=== PATIENT | female | born 1985 | race Caucasian/White ===

== ENCOUNTER 2020-04-20 01:50 | Emergency (ER) | payer SELFPAY ==
[2020-04-20 02:08] VITALS: BP 116/79; PULSE 96; RESP 18; TEMP 36.7; O2SAT 98; BMI 25.9
--- NOTE | 2020-04-20 02:39 | W.ED.ANIMALB ---
HPI - Animal Bite General: Chief Complaint: Animal Bite Stated Complaint: DOG BITE: R Leg/Arm Time Seen by Provider: 04/20/20 02:34 History of Present Illness: HPI narrative: Patient is a 34-year-old female comes in the ED with dog bite. Patient cleaned bite wounds with water and then hydrogen peroxide before coming to the ED. Patient says that her last tetanus was about 8 years ago. She agreed to get an updated tetanus shot today. complaint: animal bite Onset (ago): hour(s) (occurred a couple hours before arrival.) Animal: dog Description of animal: household pet, immunizations UTD and appeared well Mechanism: bite Location - Extremities: Right: forearm (puncture) and lower leg Pain description: sharp Context: other (Patient was freeing her pet dog from an animal trap her dog was caught in.) Associated symptoms: Deny chills, fever(s) or headache(s) Treatments prior to arrival: wound dressing(s) Review of Systems Const: Denies: fever(s), chills or fatigue Eyes: Denies: change in vision or eye discomfort ENMT: Denies: throat pain, odynophagia, nasal discharge or nasal congestion Card: Denies: chest pain, palpitations, edema, swelling of feet/ankles, dyspnea on exertion or orthopnea Resp: Denies: dyspnea, productive cough or non-productive cough GI: Denies: abdominal pain, nausea, vomiting, diarrhea, constipation or hematochezia : Denies: flank pain, dysuria or hematuria Musc: Denies: neck pain, back pain or extremity swelling Skin/Breast: Reports: new lesions (3 lacerations on right lower leg and 1 laceration on right forearm); Denies: rash Neuro: Denies: headache(s), numbness in extremities or weakness in extremities PFS ED PFSH: Social History Smoking and tobacco status: current every day smoker Physical Exam Const: COMMON NORMALS: no acute distress, patient oriented x3 and alert GENERAL APPEARANCE: cooperative and comfortable HENMT: COMMON NORMALS: normocephalic HEAD & SCALP: normocephalic MOUTH: Normal oral and palatal mucosa present THROAT: posterior oropharynx normal and uvula midline Neck/C-Spine: COMMON NORMALS: supple GENERAL: Yes normal visual inspection Resp: COMMON NORMALS: normal respiratory effort, No retractions, No use of accessory muscles and clear to auscultation bilaterally AUSCULTATION: clear to auscultation bilaterally Cardio: COMMON NORMALS: regular rate, regular rhythm, S1 normal heart sound present, S2 normal heart sound present, No gallops present (Cardio), No clicks present (Cardio), No murmurs present (Cardio) and Peripheral pulses 2+ throughout RATE: regular rate RHYTHM: regular rhythm HEART SOUNDS: S1 normal heart sound present and S2 normal heart sound present PERIPHERAL PULSES: Peripheral pulses 2+ throughout GI: COMMON NORMALS: Normal to inspection, nondistended, normoactive bowel sounds present, Soft to palpation, non-tender and no masses PALPATION: Yes Soft to palpation : COMMON NORMALS: Yes no CVA tenderness BLADDER/KIDNEY EXAM: Yes no CVA tenderness Back/Pelvis: COMMON NORMALS: no CVA tenderness Extremity: NARRATIVE EXTREMITY EXAM: Patient has 3 lacerations on right lower leg and one laceration on right forearm. Details are on the skin section of physical exam. GENERAL: Yes normal exam except as noted Neuro: COMMON NORMALS: patient oriented x3 and moves all extremities SENSORIUM/ORIENTATION: Yes alert Skin: GENERAL SKIN EXAM: dry skin and ecchymosis (Around lacerations on right lower leg and laceration on right forearm.) TRAUMA: laceration (Right leg has two 0.5cm lacs and one 3cm lac. Anterior aspect of right forearm had 1 cm laceration) linear, puncture (three smaller lacs are puncture wounds as well.), actively bleeding (minimal), superficial, involves subcutaneous tissue, motor nerve function intact and sensation intact; not contaminated Procedures Laceration Laceration 1: Site: lower extremity Side (If applicable): right Size (cm): 3 Description: linear and clean Depth: simple, single layer Local Anesthetic: lidocaine 1% and with epi Amount of anesthesia used (mL): 10 Pre-repair: wound explored and irrigated extensively (With normal saline and cleaned with CHG) Skin layer closed with: nylon Size (cm): 4-0 Number of sutures: 3 Technique: simple, interrupted Laceration 2: Site: lower extremity Side (If applicable): right Size (cm): 0.5 Description: linear and clean Depth: simple, single layer Local Anesthetic: lidocaine 1% and with epi Amount of anesthesia used (mL): 2.5 Pre-repair: irrigated extensively (With normal saline and cleaned with CHG) Skin layer closed with: nylon Size (cm): 4-0 Number of sutures: 1 Technique: simple, interrupted Laceration 3: Site: lower extremity Side (If applicable): right Size (cm): 0.5 Description: clean Depth: simple, single layer Local Anesthetic: lidocaine 1% and with epi Amount of anesthesia used (mL): 2.5 Pre-repair: irrigated extensively (With normal saline and cleaned with CHG.) Skin layer closed with: nylon Size (cm): 4-0 Number of sutures: 1 Technique: simple, interrupted Laceration 4: Site: upper extremity Side (If applicable): right Size (cm): 1 Description: linear and clean Depth: simple, single layer Local Anesthetic: lidocaine 1% and with epi Amount of anesthesia used (mL): 5 Pre-repair: wound explored and irrigated extensively (With normal saline and cleaned with CHG swab.) Skin layer closed with: nylon Size (cm): 4-0 Number of sutures: 1 Technique: simple, interrupted Course Vital Signs: Vital signs: Vital Signs Temperature 98.1 F 04/20/20 02:08 Pulse Rate 89 04/20/20 04:02 Respiratory Rate 18 04/20/20 04:02 Blood Pressure 108/74 04/20/20 04:02 Pulse Oximetry 100 04/20/20 04:02 Discharge Plan Discharge Patient Disposition: Home, Self-Care Clinical Impression: Multiple lacerations Dog bite Qualifiers: Encounter type: initial encounter Qualified Code(s): W54.0XXA - Bitten by dog, initial encounter Condition: Stable Prescriptions: New Augmentin 500-125 mg tablet 1 tab PO BID 5 Days Qty: 10 RF: 0 Discharge Orders: Discharge Order (Routine); Ordered 04/20/20 Ordered By: Solomon Barry Discharge Diet: Regular Discharge Activity: Resume usual activity Patient Instructions: Animal Bite (ED), Suture Care (ED), Laceration (ED) Activity Restrictions/Additional Instructions: Keep sutures clean and dry for the next 48 hours. After 48 hours re-bandage and clean daily. Take full course of antibiotics as prescribed. Sutures can be removed in 7-10 days at either the ED, primary care doctor or urgent care. Take Tylenol or ibuprofen for pain or fevers. Watch for signs of infection such as increasing redness, tenderness, warmth or puslike drainage. If you see with signs of infection return to ED, primary care office or urgent care for reevaluation. You were given a dose of tetanus here in the ED today. Your next tetanus dose in 8 to 10 years. Discharge Date/Time: 04/20/20 04:16 Coding Level of Care Code ED [facility] Director for Katja Barber Exam Comprehensive
[2020-04-20] MEDS: tetanus-dipt-pertussis 0.5 mL SDV IM (03:05)
[2020-04-20 03:17] VITALS: BP 110/77; PULSE 91; RESP 19; O2SAT 100
--- NOTE | 2020-04-20 03:21 | PC.NURSE ---
Wounds cleansed with NS and 4x4's
[2020-04-20] MEDS: amoxicillin-clav 500-125 mg Tablet 1 TAB PO (04:01)
[2020-04-20 04:02] VITALS: BP 108/74; PULSE 89; RESP 18; O2SAT 100
--- NOTE | 2020-04-20 04:14 | PC.NURSE ---
Telfa and coban to wounds
== END 2020-04-20 04:16 | disposition home or self-care (01) ==
PROVIDERS: Emergency Provider Physician Assistant
DX: S81.851A Open bite, right lower leg, initial encounter (principal); S51.851A Open bite of right forearm, initial encounter; W54.0XXA Bitten by dog, initial encounter; F17.210 Nicotine dependence, cigarettes, uncomplicated; Z23 Encounter for immunization
CPT/HCPCS: 12002; 12345; 90471; 90715; 99281; 99283; J2001

== ENCOUNTER 2020-08-19 21:19 | Emergency (ER) | payer SELFPAY ==
[2020-08-19 21:47] VITALS: BP 114/82; PULSE 100; RESP 14; TEMP 36.6; O2SAT 97; BMI 25.4
--- NOTE | 2020-08-19 22:47 | ED_ITS ---
HPI - Headache General: Chief Complaint: Headache Stated Complaint: fenton Time Seen by Provider: 08/19/20 22:41 History of Present Illness: HPI Narrative: Patient history of migraines. Was given Fioricet for headaches which she says helped in the past. But has not helped today. elicited complaint: migraine Onset (ago): hour(s) Onset description: gradually Location: frontal Severity: severe Quality & Timing: throbbing Exacerbating factors: movement of head/neck, light and noise Relieving factors: nothing and dark room Context: occurred at rest Associated symptoms: Reports nausea; Deny chest pain, fever(s) or rash Treatments prior to arrival: other (Fioricet) Review of Systems Const: Denies: fever(s), chills or body aches Eyes: Denies: change in vision or blurry vision ENMT: Denies: throat pain or nasal congestion Card: Denies: chest pain or dyspnea on exertion Resp: Denies: dyspnea, productive cough or non-productive cough GI: Reports: nausea Musc: Denies: extremity pain Skin/Breast: Denies: rash Neuro: Reports: headache(s) Psych: Denies: anxiety or depression Leo/Lymph: Denies: easy bruising PFSH ED PFSH: Social History Smoking and tobacco status: current every day smoker Physical Exam Const: COMMON NORMALS: no acute distress, average body habitus and patient oriented x3 HENMT: COMMON NORMALS: normocephalic HEAD & SCALP: normal to inspection and normocephalic FACE & SINUS: normal facial exam Eye: COMMON NORMALS: conjunctivae normal GENERAL EYE: appearance normal, both eyes and all related structures CONJUNCTIVA: Yes conjunctivae normal Neck/C-Spine: COMMON NORMALS: no JVD Chest: COMMONS NORMALS: normal inspection of the chest Resp: COMMON NORMALS: normal respiratory effort and clear to auscultation bilaterally AUSCULTATION: clear to auscultation bilaterally Cardio: COMMON NORMALS: no JVD, regular rate and regular rhythm RATE: regular rate RHYTHM: regular rhythm GI: COMMON NORMALS: Normal to inspection, nondistended, normoactive bowel soun ds present Extremity: COMMON NORMALS: full ROM Neuro: COMMON NORMALS: patient oriented x3 Course Vital Signs: Vital signs: Vital Signs Temperature 97.9 F 10/20/20 21:47 Pulse Rate 64 08/19/20 23:48 Respiratory Rate 18 08/19/20 23:48 Blood Pressure 113/67 08/19/20 23:48 Pulse Oximetry 99 08/19/20 23:48 MDM - Headache MDM Narrative: Medical decision making narrative: Complete relief with the Imitrex injection will start patient on having as needed I am attracts use half tab daily as needed for migraine attack take it beginning migraine Discharge Plan Discharge Patient Disposition: Home Clinical Impression: Migraine Qualifiers: Migraine type: without aura Status migrainosus presence: without status migrainosus Intractability: intractable Qualified Code(s): G43.019 - Migraine without aura, intractable, without status migrainosus Condition: Stable Prescriptions: New Imitrex 100 mg tablet 100 mg PO ONCE Qty: 9 RF: 0 promethazine 12.5 mg tablet 12.5 mg PO Q6H PRN (Reason: nausea and vomiting) Qty: 14 RF: 0 Discharge Orders: Discharge Order (Routine); Ordered 08/19/20 Ordered By: Larry Stanley Discharge Diet: Usual diet Discharge Activity: Resume usual activity Patient Instructions: Headache - Migraine (Adult) Activity Restrictions/Additional Instructions: Follow-up with medical provider as directed. Take medications as prescribed. Return to the ER or your medical provider if condition worsens. Please read and understand discharge instructions. If any questions ask please. Discharge Date/Time: 08/19/20 23:50 Coding Level of Care Code ED [facility] for [facility]ja Fwd Exam Comprehensive
[2020-08-19] MEDS: promethazine 25 mg/mL SDV 1 mL IM (23:03)
[2020-08-19] MEDS: SUMAtriptan 6 mg/0.5 mL SDV SUBCUT (23:03)
[2020-08-19 23:48] VITALS: BP 113/67; PULSE 64; RESP 18; O2SAT 99
== END 2020-08-19 23:50 | disposition home or self-care (01) ==
PROVIDERS: Emergency Provider Nurse Practitioner Family
DX: G43.019 Migraine without aura, intractable, without status migrainosus (principal); F17.210 Nicotine dependence, cigarettes, uncomplicated
CPT/HCPCS: 12345; 96372; 99282; 99283; J2550; J3030

== ENCOUNTER 2025-10-21 17:57 | Emergency (ER) | payer SELFPAY ==
[2025-10-21 17:58] VITALS: BP 135/91; PULSE 85; RESP 16; TEMP 36.6; O2SAT 100
--- OUTSIDE RECORDS SUMMARY | 2025-10-21 18:01 | XMS_ITS | Clinical Summary ---
Author Organization [facility] Address [address] [place]: Epic Prelude ADT RAH[place] SILVER [address] Care Team Providers Care Social Sciences Professor Name Role Phone Unavailable Primary Care Provider Unavailabl e Medications montelukast (Singulair) 10 mg tablet Take 1 Tablet by mouth 1 time daily as needed. Active Social History Tobacco Use Types Packs/Day Years Used Date Smoking Tobacco: Every Day Cigarettes Alcohol Use Standard Drinks/Week Comments Yes 0 (1 standard drink = 0.6 oz pur e alcohol) Comments Unknown Sex and Gender Information Value Date Recorded Sex Assigned at Not on file Legal Sex Female 11:35 PM CDT Gender Identity Not on file Sexual Orientation Not on file Plan of Treatment Health Maintenance Due Date Last Done Comments DTAP/TDAP/TD VACCINES (1 - Tdap) 2004 HEPATITIS B VACCINES (1 of 3 - 19+ 3-dose series) 12/2003 HPV/Cotest (21-29) 2006 CERVICAL CANCER SCREENING 2015 HPV/Cotest (30-65) 2015 PAP SMEAR 2015 BREAST CANCER SCREENING 2025 INFLUENZA VACCINE (#1) 2025 HPV VACCINES (No Doses Required) Completed
--- OUTSIDE RECORDS SUMMARY | 2025-10-21 18:01 | XMS_ITS | Clinical Summary ---
Author Organization [facility] Address [address] [place] [address] Phone Care Team Providers Care Resident Services Director Name Role Phone Unavailable Primary Care Provider Unavailabl e Allergies No known active allergies Medications MONTELUKAST SODIUM (SINGULAIR ORAL) Take 1 Tab by mouth 1 time daily as needed. Active naproxen (NAPROSYN) 375 mg tablet Take 1 Tab by mouth 2 times daily with meals. 14 Tab None 04/12/2014 Active Social History Tobacco Use Types Packs/Day Years Used Date Smoking Tobacco: Every Day Cigarettes Alcohol Use Standard Drinks/Week Comments Yes 0 (1 standard drink = 0.6 oz pur e alcohol) seldom Comments No Sex and Gender Information Value Date Recorded Sex Assigned at Not on file Legal Sex Female 12:05 PM CDT Gender Identity Not on file Sexual Orientation Not on file Last Filed Vital Signs Vital Sign Reading Time Taken Comments Blood Pressure 106/60 04/12/2014 2:42 PM CDT Pulse 78 04/12/2014 12:16 PM CDT Temperature 36.9 C (98.4 F) 04/12/2014 2:42 PM CDT Respiratory Rate 16 04/12/2014 2:42 PM CDT Oxygen Saturation 98% 04/12/2014 2:42 PM CDT Inhaled Oxygen Concentration - - Weight 66 kg (145 lb 9.6 oz) 04/12/2014 12:16 PM CDT Height 152.4 cm (5') 04/12/2014 12:16 PM CDT Body Mass Index 28.44 04/12/2014 12:16 PM CDT Plan of Treatment Health Maintenance Due Date Last Done Comments DTAP/TDAP/TD VACCINES (1 - Tdap) 2004 HEPATITIS B VACCINES (1 of 3 - 19+ 3-dose series) 12/2003 HPV/Cotest (21-29) 2006 CERVICAL CANCER SCREENING 2015 HPV/Cotest (30-65) 2015 PAP SMEAR 2015 BREAST CANCER SCREENING 2025 INFLUENZA VACCINE (#1) 2025 HPV VACCINES (No Doses Required) Completed Insurance MEDICAID [place]
--- OUTSIDE RECORDS SUMMARY | 2025-10-21 18:02 | XMS_ITS | Patient Health Record ---
Author Organization [facility] Address [address] [place] [address] Care Team Providers Care Java Groovy Developer Name Role Phone Rand, [facility] Primary Care Provider [phone] [facility] Unavailable Unavailable Allergies No Known Allergies Reason For Referral No Information Medications Medication SIG (Take, Route, Frequency, Duration) Notes Start Date End Date Status SUMAtriptan Succinate 100 MG Tablet 1 tab Oral Once a day prn migraine; may repeat q 2 hours if needed; Duration: 30 days Active Ondansetron 4 MG Tablet Disintegrating 1 tab Orally q 4 hours prn nausea; Duration: 30 days Not-Taking Diclofenac Sodium 75 MG Tablet Delayed Release 1 tab Orally Twice a day pc prn inflammatory pain; Duration: 30 04/12/2025 11/07/2025 Active Immunizations Vaccine Route Administration Date Status Comme nts Flucelvax Trivalent, Syringe 0.5 mL, PF Unknown 025 Refused Social History Tobacco Use: Social History Observation Description Date Details (start date - stop date) Former Smoker NA - NA Social History Depression Screening Social Info Question Answer Notes depression screening findings Findings Negative (0 -4) PHQ-9 Little interest or p nunu in doing things Not at all Feeling down, depressed, or hopeless Not at all Trouble falling or staying asleep, or sleeping t oo much Not at all Feeling tired or having little energy Not at all Poor appetite or overeating Not at all Feeling bad about yourself, or that you are a failure, or have let yourself or your family down Not at all Trouble concentrating on thi ngs, such as reading the newspaper or watching television Not at all Moving or speaking so slowly that other people could have noticed. Or the opposite ? being so fidgety or restless that you have been moving around a lot more than usual Not at all Thoughts that you would be b mariella off , or of hurting yourself in some way Not at all Total Score 0 Drugs/Alcohol: Social Info Question Answer Notes Alcohol Screen (Audit-C) Did you have a drink containing alcohol in the past year? Yes How often did you have a drink containing alcohol in the past year? Monthly or less (1 point) How many drinks did you have on a typical day when you were drinking in the past year? 1 or 2 drinks (0 point) How often did you have 6 or more drinks on one occasion in the past year? Never (0 point) Points 1 Interpretation Negative Drugs Have you used drugs other than those for medical reasons in the past 12 months? No Tobacco Use: Social Info Question Answer Notes Tobacco Control (Standard) Tobacco use: Former smoker How long has it been since you last smoked? 1-5 years Additional Details Category Social Info Options Details Drugs/Alcohol: Do you smoke marijuana? De nies Do you drink alcohol? 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) Active confirmed Problem Obesity (089271549) Obesity (BMI 30-39.9) (E66.9) Active confirmed Problem Migraine with aura (4432403) Migraine with aura and without status migrainosus, not intractable (G43.109) Active confirmed Problem Sciatica (55067076) Sciatica (M54.30) Active confirmed Problem Body mass index 30.00 to 34.99 (465794151837015 ) Body mass index [BMI] 32.0-32.9, adult (Z68.32) Active confirmed Problem Body mass index 30+ - obesity (526312294) Body mass index [BMI] 30.0-30.9, adult (Z68.30) Active confirmed Vital Signs Heart Rate 85 /min 07/12/2025 Temperature 97.5 degrees Fahrenheit 07/12/2025 Respiratory Rate 20 /min 07/12/2025 Blood pressure diastolic 64 mm Hg 07/12/2025 Oximetry 99 % 07/12/2025 Height-cm 152.4 cm 07/12/2025 Weight-kg 64.41 kg 07/12/2025 Height 60 in 07/12/2025 Blood pressure systolic 94 mm Hg 07/12/2025 Weight 142 lbs 07/12/2025 BMI 27.73 kg/m2 07/12/2025 Encounters Encounter Location Date Provider Diagnosis [facility] [address] [address] 07/12/2025 [facility] Overweight (BMI 25.0-29.9) E66.3 and Migraine with aura and without status migrainosus, not intractable G43.109 [facility] [address] [address] 06/14/2025 [facility] Migraine with aura a nd without status migrainosus, not intractable G43.109 and Overweight (BMI 25.0-29.9) E66.3 [facility] [address] [address] 05/10/2025 [facility] Overweight (BMI 25.0-29.9) E66.3 and Migraine with aura and without status migrainosus, not intractable G43.109 [facility] [address] [address] 04/12/2025 [facility] Encounter for immunization Z23 ; Lumbar pain M54.50 ; Immunization not carried out because of patient refusal Z28.21 ; Overweight (BMI 25.0-29.9) E66.3 ; Sciatica M54.30 ; Muscle spasm M62.838 and Absence of both cervix and uterus, acquired Z90.710 [facility] [address] [address] 02/07/2025 [facility] Depression screen Z13.31 and Migraine with aura and without status migrainosus, not intractable G43.109 [facility] [address] [address] 06/26/2025 [facility] Assessments Encounter Date Diagnosis (ICD Code) Assessment Notes Treatment Notes Treatment Clinical Notes Section Notes 02/07/2025 Migraine with aura and without status migrainosus, not intractable (ICD-10 - G43.109) sumatriptan 02/07/2025 Depression screen (ICD-10 - Z13.31) 05/10/2025 Migraine with aura and without status migrainosus, not intractable (ICD-10 - G43.109) sumatriptan 05/10/2025 Overweight (BMI 25.0-29.9) (ICD-10 - E66.3) Discussed with the diet, increase water intake, increase activity, decrease calorie intake, take medication as directed; phentermine e script to patient pharmacy. Patient to lose minimum of 4 pounds and return to clinic 1 month and prn. Pts questions asked and answered. Discharged to home. 06/14/2025 Migraine with aura and without status migrainosus, not intractable (ICD-10 - G43.109) continue meds 06/14/2025 Overweight (BMI 25.0-29.9) (ICD-10 - E66.3) Discussed with the diet, increase water intake, increase activity, decrease calorie intake, take medication as directed; phentermine e script to patient pharmacy. Patient to lose minimum of 4 pounds and return to clinic 1 month and prn. Pts questions asked and answered. Discharged to home. 07/12/2025 Migraine with aura and without status migrainosus, not intractable (ICD-10 - G43.109) sumatriptan 07/12/2025 Overweight (BMI 25.0-29.9) (ICD-10 - E66.3) Discussed with the diet, increase water intake, increase activity, decrease calorie intake, take medication as directed; phentermine e script to patient pharmacy. Patient to lose minimum of 4 pounds and return to clinic 1 month and prn. Pts questions asked and answered. Discharged to home. 04/12/2025 Encounter for immunization (ICD-10 - Z23) 04/12/2025 Lumbar pain (ICD-10 - M54.50) diclofenac tramadol 04/12/2025 Immunization not carried out because of patient refusal (ICD-10 - Z28.21) 04/12/2025 Overweight (BMI 25.0-29.9) (ICD-10 - E66.3) Discussed with the diet, increase water intake, increase activity, decrease calorie intake, take medication as directed; phentermine e script to patient pharmacy. Patient to lose minimum of 4 pounds and return to clinic 1 month and prn. Pts questions asked and answered. Discharged to home. 04/12/2025 Sciatica (ICD-10 - M54.30) depomedrol/deca dron im 04/12/2025 Muscle spasm (ICD-10 - M62.838) flexeril 04/12/2025 Absence of both cervix and uterus, acquired (ICD-10 - Z90.710) 02/07/2025 Other Questions asked and answered; discharged to home. 04/12/2025 Other Questions asked and answered; discharged to home. 05/10/2025 Other Questions asked and answered; discharged to home. 06/14/2025 Other Questions asked and answered; discharged to home. 07/12/2025 Other Questions asked and answered; discharged to home. Plan Of Treatment No Information Medications Administered Medication Instructions Date of Administration Dosage Notes DEPO-Medrol 04/12/2025 40 mg [facility] [phone] 3-01 pt tolerated well/instructed to wait 20 min dexAMETHasone 04/12/2025 4 mg [facility] [address]-4 423-00 pt tolerated well/instructed to wait 20 min Medical (General) History Medical History History ICD Code migraines Surgical History Surgery Date(Month/Year) hysterectomy, total with bilateral salpi guerra-oophorectomy (BSO) dental surgery 2021 Hospitalization History Reason Date(Month/Year) childbirth x2
[2025-10-21 18:35] VITALS: BP 135/97; PULSE 83; RESP 18; O2SAT 100
--- NOTE | 2025-10-21 19:12 | ED_ITS ---
HPI - Headache General: Chief Complaint: Headache Stated Complaint: YANES, lump on head Time Seen by Provider: 10/21/25 18:16 Source: patient Mode of arrival: ambulatory Limitations: no limitations History of Present Illness: Patient is a 40-year-old female with past medical history of migraines who presents to the emergency department complaining of a headache for the past 4 days. States that this current migraine was prompted by a lump on her head that has been present for years but recently has started to grow in size, become red, and very tender. States that normally she takes sumatriptan for abortive therapy but this has not been helpful. Denies any fevers or chills, no nausea or vomiting. No neurological symptoms, no visual changes. She does note that primarily her migraine is the most bothersome symptoms, as she can feel a lot of pressure behind her right eye. Her vitals are stable at this time, nontoxic- appearing, no focal neurological deficit. MD elicited complaint: headache and other (Lump on head) Onset (ago): day(s) (4) Associated symptoms: Deny chest pain, fever(s), lightheadedness, nausea, rash or vomiting Related Data Previous Rx's ?Medication ?Instructions ?Recorded promethazine 12.5 mg tablet 12.5 mg PO Q6H PRN nausea and 08/19/20 vomiting #14 tabs sumatriptan succinate 100 mg 100 mg PO ONCE #9 tabs tablet (Imitrex) doxycycline hyclate 100 mg tablet 100 mg PO BID 7 days #14 tabs 10/21/25 hydrocodone 5 mg-acetaminophen 325 1 tab PO Q8H PRN pa in #14 tabs 10/21/25 mg tablet ondansetron 4 mg disintegrating 4 mg PO TID PRN nausea and 10/21/25 tablet vomiting #30 tabs Allergies Allergy/AdvReac Type Severity Reaction Status Date / Time No Known Allergies Allergy Verified 04/20/20 02:16 Review of Systems General: Reports: 10 or more systems reviewed and unremarkable except in HPI and below Const: Denies: fever(s), chills or fatigue Eyes: Denies: change in vision ENMT: Denies: throat pain, ear or mastoid pain or nasal discharge Card: Denies: chest pain, palpitations, swelling of feet/ankles or lightheadedness Resp: Denies: dyspnea, productive cough or wheezing GI: Denies: abdominal pain, nausea, vomiting, diarrhea or constipation : Denies: flank pain, difficulty voiding, dysuria or urinary frequency Musc: Denies: neck pain, back pain or joint pain Skin/Breast: Reports: erythema, skin pain, skin tenderness, skin swelling and changing lesions; Denies: rash Neuro: Reports: headache(s); Denies: numbness in extremities, weakness in extremities, dizziness, seizure- like activity or involuntary movements PFSH ED PFSH: Social History Smoking and tobacco/nicotine status: current every day tobacco/nicotine user Physical Exam Const: COMMON NORMALS: no acute distress, average body habitus, patient oriented x3, no limitations, healthy appearing, alert and well nourished HENMT: OTHER: There is a cystic lesion to patient's scalp, very tender to palpation, hard to the touch with some fluctuance noted. There is also overlying erythema that is mild but present and appears to be expanding circumferentially Neck/C-Spine: COMMON NORMALS: full ROM, no lymphadenopathy, supple and no meningeal signs Resp: COMMON NORMALS: normal respiratory effort, No use of accessory muscles and clear to auscultation bilaterally AUSCULTATION: clear to auscultation bilaterally Cardio: COMMON NORMALS: regular rate and regular rhythm RATE: regular rate RHYTHM: regular rhythm Extremity: COMMON NORMALS: full ROM and capillary refill normal Neuro: COMMON NORMALS: patient oriented x3, CN's II-XII intact bilaterally, moves all extremities, no focal motor deficits and no sensory deficits noted SENSORIUM/ORIENTATION: Yes alert MENINGEAL SIGNS: Yes no meningeal signs Skin: COMMON NORMALS: turgor normal GENERAL SKIN EXAM: turgor normal Procedures Abscess I/D Site: scalp Local Anesthetic: lidocaine 2% and with epi Amount of anesthesia used (mL): 3 Technique: incised with #11 blade Amount of fluid expressed (mL): 10 Irrigation: Yes Packing used?: none Course Vital Signs: Vital signs: Vital Signs Temperature 97.8 F 10/21/25 17:58 Pulse Rate 87 10/21/25 20:19 Respiratory Rate 16 10/21/25 20:19 Blood Pressure 129/84 10/21/25 20:19 Pulse Oximetry 95 10/21/25 20:19 Oxygen Delivery Me thod Room Air 10/21/25 20:19 MDM - Headache Medical Decision Making Patient presented for a migraine headache for 4 days but also states that she has had worsening of her chronic lesion to her scalp, as there was cystic lesion with redness that was exquisitely tender to palpation on exam. No neurological deficit, that she had stated this felt similar to prior migraines and that she believes that the worsening of her lesion had prompted this. There is mild erythema noted to the lesion with mild fluctuance at exam, prompting this to be incised and attempted to pull out the capsule however was unsuccessful and it was drained. This will be left open to drain, as it is very superficial and small and she will be treated with doxycycline and referred to dermatology for excision of the capsule. Her migraine was treated with migraine cocktail here in the emergency department of which she noted improvement. Overall stable for discharge home she is encouraged to watch for any signs of infection and to return with any new or worsening. Patient agrees with this plan at this time. No radiology studies performed this visit Discharge Plan Discharge Patient Disposition: Home Clinical Impression: Infected epidermoid cyst Migraine Qualifiers: Migraine type: unspecified Status migrainosus presence: with status migrainosus Intractability: intractable Qualified Code(s): G43.911 - Migraine, unspecified, intractable, with status migrainosus Condition: Stable Prescriptions: New ondansetron 4 mg tablet,disintegrating 4 mg PO TID PRN (Reason: nausea and vomiting) Qty: 30 0RF doxycycline hyclate 100 mg tablet 100 mg PO BID 7 Days Qty: 14 0RF hydrocodone-acetaminophen 5-325 mg tablet 1 tab PO Q8H PRN (Reason: pain) Qty: 14 0RF No Action Imitrex 100 mg tablet 100 mg PO ONCE Qty: 9 0RF Rx Instructions: 100 mg PO; promethazine 12.5 mg tablet 12.5 mg PO Q6H PRN (Reason: nausea and vomiting) Qty: 14 0RF Rx Instructions: 3 doses during day; last dose no later than 4 hr before bedtime Discharge Orders: Discharge ED (Routine); Ordered 10/21/25 Ordered By: Beck Ballard Referrals: Giorgi,DENNIS Blackwell [Primary Care Provider, Nurse Practitioner] Patient Instructions: Patient Portal & Zane Instructions Activity Restrictions/Additional Instructions: Discharge Instructions Diagnosis: Migraine headache and infected epidermoid cyst of the scalp What Was Done Today: - Your migraine was treated with medications in the emergency department - The infected cyst on your scalp was opened and drained - The wound was left open to allow continued drainage (the cyst capsule will be removed later by a supervisor sample preparation) - You were started on an antibiotic called doxycycline Wound Care Instructions: Keep the wound clean and dry: - Gently clean the area once daily with mild soap and water - Pat dry with a clean towel - Cover with a clean, dry gauze dressing - Change the dressing daily or if it becomes wet or soiled - Some drainage from the wound is normal and expected Watch for signs of worsening infection: - Increasing redness, swelling, or warmth around the wound - Increasing pain - Pus or foul-smelling drainage - Fever over 100.4?F (38?C) - Red streaks spreading from the wound Medication Instructions: Doxycycline: - Take 100 mg by mouth twice daily for the first day, then 100 mg once daily - Take with a full glass of water - Can be taken with or without food (taking with food may reduce stomach upset) - Complete the full course even if you feel better - Avoid prolonged sun exposure and use sunscreen, as this medication can make your skin more sensitive to sunlight - Do not take if you are or For your migraine: - Continue any home migraine medications as previously prescribed - Rest in a quiet, dark room if headache returns - Stay well-hydrated Follow-Up Care: Dermatology appointment: - You will receive a call to schedule an appointment in 4-6 weeks - The supervisor sample preparation will remove the cyst capsule to prevent it from coming back - This is important because the capsule was not removed today Return to the emergency department or call your doctor if: - Fever over 100.4?F (38?C) - Severe headache that does not improve with your usual medications - Vision changes, confusion, or neck stiffness - Signs of worsening wound infection (listed above) - Severe skin rash or blistering - Severe headache with vision changes (rare side effect of doxycycline) Activity: - You may resume normal activities as tolerated - Avoid strenuous exercise for 24-48 hours - Do not submerge the wound in water (no swimming or baths) until it heals; showers are okay Questions? If you have any questions or concerns, please contact your primary care doctor or return to the emergency department. Print Language: Swedish Coding Level of Care Code ED Predatory Animal Trapper for Katja Barber
[2025-10-21] MEDS: diphenhydrAMINE 50 mg/mL SDV 1mL IVP (19:34)
[2025-10-21] MEDS: ondansetron 2 mg/ML SDV 2 mL 4 MG IVP (19:34)
[2025-10-21 20:19] VITALS: BP 129/84; PULSE 87; RESP 16; O2SAT 95
[2025-10-21] MEDS: lidocaine-epi 2% 20 mL INJ INJECTION (20:44)
== END 2025-10-21 21:07 | disposition home or self-care (01) ==
PROVIDERS: Emergency Provider Physician Assistant; PCP Nurse Practitioner Family
DX: L72.0 Epidermal cyst (principal); G43.911 Migraine, unspecified, intractable, with status migrainosus; Z72.0 Tobacco use
CPT/HCPCS: 10060; 96374; 96375; 99284; J1100; J1200; J1885; J2405; J7030; J9999